=== PATIENT | female | born 1990 | race Caucasian/White ===

== ENCOUNTER 2020-04-10 21:30 | Emergency (ER) | payer OTHER ==
[2020-04-10 21:40] VITALS: BP 139/85; PULSE 74; TEMP 98.5; BMI 33.8
[2020-04-10] MEDS ORDERED: LIDOCAINE PATCH REMOVAL MC SCH (22:00)
[2020-04-10] MEDS ORDERED: LIDOCAINE 5% TOPICAL PATCH TP ONE (22:20)
[2020-04-10] MEDS ORDERED: ACETAMINOPHEN 325 MG TABLET (FP) PO ONE (22:21)
[2020-04-10] MEDS ORDERED: METHOCARBAMOL 500 MG TABLET PO ONE (22:22)
[2020-04-10] MEDS ORDERED: LIDOCAINE 5% TOPICAL PATCH ONE (22:31)
[2020-04-10] MEDS ORDERED: ACETAMINOPHEN 325 MG TABLET (FP) ONE (22:31)
[2020-04-10] MEDS ORDERED: METHOCARBAMOL 500 MG TABLET ONE (22:31)
== END 2020-04-10 22:42 | disposition home or self-care (01) ==
LOC: JER 21:30
DX: M54.2 Cervicalgia (principal); M79.602 Pain in left arm
CPT/HCPCS: 99283-25